=== PATIENT | female | born 1935 | race Caucasian/White ===

== ENCOUNTER → 2018-02-09 | Outpatient (CLI) | payer MEDICARE ==
[~2018-02-09] MED LIST: AMLO10TA2 PO; ASPI-555 PO; BENZ-17 PO; CETI10TA86 PO; FLUT220HFA IH; HYDR1POW19 MC; ISOS60TA4 PO; LATA2.5D2 OP; NITR0.4T SL; PRAV40TA3 PO; TIOT4MIS3 IH
== END | disposition home or self-care (01) ==
LOC: RAH 10:00
PROVIDERS: ATTEND Family Medicine
DX: R92.8 Other abnormal and inconclusive findings on diagnostic imaging of breast (principal); Z85.3 Personal history of malignant neoplasm of breast; Z90.11 Acquired absence of right breast and nipple
CPT/HCPCS: 77065

== ENCOUNTER → 2018-11-13 | Outpatient (CLI) | payer MEDICARE ==
[~2018-11-13] MED LIST changes: -AMLO10TA2 PO; +AMLO10TA7 PO
== END | disposition home or self-care (01) ==
LOC: RAH 10:41
PROVIDERS: ATTEND Family Medicine
DX: J44.9 Chronic obstructive pulmonary disease, unspecified (principal); J84.10 Pulmonary fibrosis, unspecified; K76.89 Other specified diseases of liver; G89.29 Other chronic pain; M47.815 Spondylosis without myelopathy or radiculopathy, thoracolumbar region; I25.10 Atherosclerotic heart disease of native coronary artery without angina pectoris
CPT/HCPCS: 71250

== ENCOUNTER 2018-12-08 08:01 | Day surgery (SDC) | payer MEDICARE ==
[2018-12-08 08:28] VITALS: BP 150/71
[2018-12-08 08:55] LABS: INR 0.92 (0.85-1.15); PARTIAL THROMBOPLASTIN TIME 29.4 SEC (26.3-35.5); PROTHROMBIN TIME 9.7 SEC (9.6-11.6)
[2018-12-08] MEDS ORDERED: SODIUM CHLORIDE 0.9% 1000ML 1,000 ML IV ONE (09:42)
--- NOTE | 2018-12-08 11:09 | NUR ---
PROCEDURE PATIENT SCHEDULED FOR RT LUNG BIOPSY. DR Sherron NORWOOD PRESENT AND PATIENT STATED SHE TOOK ASPIRIN 81MG LAST NIGHT. DR Sherron MORALES EXPLAINED THE IMPORTANCE OF HOLDING THE BLOOD THINNERS FOR 5 DAYS AND RESCHEDULED THE PROCEDURE FOR Friday12/14/18. PATIENT VERBALIZED UNDERSTANDING. DR Treva ELIZABETH'S OFFICE NOTIFIED AND PROCEDURE RESCHEDULED FOR 12/14/18 AT 10AM. PATIENT TRANSPORTED TO DAY PATIENT FOR DISCHARGE.
--- NOTE | 2018-12-08 11:10 | NUR ---
PER DR. MORALES PT NEEDS TO BE OFF ASPIRIN FOR 5 DAYS PRIOR TO PROCEDURE, PT RESCHEDULED FOR FRIDAY AT 08:00AM
== END 2018-12-08 11:20 | disposition home or self-care (01) ==
LOC: RAH 08:01
PROVIDERS: ATTEND Internal Medicine
DX: R91.8 Other nonspecific abnormal finding of lung field (principal); Z53.8 Procedure and treatment not carried out for other reasons; C34.90 Malignant neoplasm of unspecified part of unspecified bronchus or lung
CPT/HCPCS: 36415; 85610; 85730; A4606; J7030

== ENCOUNTER 2018-12-14 08:16 | Day surgery (SDC) | payer MEDICARE ==
[~2018-12-14] VITALS: Ht 165.1 cm; Wt 92.2 kg
[2018-12-14 08:45] VITALS: BP 177/58
[2018-12-14] MEDS ORDERED: LIDOCAINE HCL 1% 20 ML VIAL ONE (10:52)
[2018-12-14] MEDS ORDERED: MIDAZOLAM HCL 1 MG/ML 2ML VIAL ONE (10:54)
[2018-12-14] MEDS ORDERED: FENTANYL CITRATE PF 50 MCG/1 ML 2ML VIAL ONE (10:54)
[2018-12-14 11:30] VITALS: BP 129/54
[2018-12-14] MEDS ORDERED: ACETAMINOPHEN-CODEINE 300/30MG TAB PO PRN (11:30)
--- NOTE | 2018-12-14 11:30 | NUR ---
CT GD RT LUNG BX PROCEDURE PERFORMED BY DR Sherron MORALES. PUNCTURE SITE RT LUNG AND PATIENT TOLERATED PROCEDURE WELL. SPECIMEN X 3 COLLECTED AND SENT TO LAB. END OF PROCEDURE AT 1115. BIOPSY NEEDLE REMOVED AND DRESSING APPLIED. NO BLEEDING NOTED. REPORT GIVEN TO Meghna BOND RN AND PATIENT TRANSPORTED TO DAY PATIENT VIA STRETCHER AT 1130. AAO X3 WITH NO C/O PAIN.
[2018-12-14] MEDS ORDERED: ACETAMINOPHEN-CODEINE 300/30MG TAB ONE (11:53)
[2018-12-14 13:02] VITALS: BP 143/56
[2018-12-14 13:47] VITALS: BP 132/48
--- NOTE | 2018-12-14 14:19 | NUR ---
PT TOLERATED PROCEDURE WELL, STATES IMPROVEMENT OF PAIN FROM 5 TO A 3 AFTER RESTING AND MEDICATION. DRESSING IS D/I NO ACTIVE BLEEDING OR SWELLING TO SITE. POST CARE INSTRUCTIONS GIVEN TO PT AND DAUGHTER, BOTH VERBALIZED UNDERSTANDING. PT SENT OUT TO CAR IN WHEELCHAIR, DRIVEN BY DAUGHTER, PERSONAL BELONGINGS AND CANE AT SIDE.
== END 2018-12-14 14:19 | disposition home or self-care (01) ==
LOC: DAH 08:16 → EDSTATUS 10:00 → DAH 14:19
PROVIDERS: ATTEND Internal Medicine
DX: C34.11 Malignant neoplasm of upper lobe, right bronchus or lung (principal); J44.9 Chronic obstructive pulmonary disease, unspecified; I10 Essential (primary) hypertension; E66.9 Obesity, unspecified; Z79.899 Other long term (current) drug therapy; Z68.32 Body mass index [BMI] 32.0-32.9, adult
CPT/HCPCS: 32405; 71045; 77002; 77012; 88305; 88341; 88342; J2250; J3010